=== PATIENT | female | born 1975 | race African-American/Black ===

== ENCOUNTER 2017-03-01 07:41 | Emergency (ER) | payer MEDICAID ==
[~2017-03-01] VITALS: Ht 165.1 cm; Wt 90.0 kg
[~2017-03-01 07:41] MED LIST: RISP1 PO; TRAZ50TA78 PO
[2017-03-01 07:42] VITALS: BP 127/77; PULSE 98; RESP 16; TEMP 98; O2SAT 99
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
[2017-03-01] MEDS ORDERED: IBUPROFEN 800 MG TAB PO ONE (08:00)
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
== END 2017-03-01 08:52 | disposition home or self-care (01) ==
LOC: NEPK 07:41
DX: S90.01XA Contusion of right ankle, initial encounter (principal); S90.31XA Contusion of right foot, initial encounter; Y04.0XXA Assault by unarmed brawl or fight, initial encounter
CPT/HCPCS: 73610; 73630; 99283; E0113

== ENCOUNTER 2017-05-27 08:45 | Emergency (ER) | payer MEDICAID ==
[~2017-05-27] VITALS: Ht 162.6 cm; Wt 63.5 kg
[2017-05-27 08:46] VITALS: BP 131/67; PULSE 104; RESP 20; TEMP 98.7; O2SAT 97
[2017-05-27] MEDS ORDERED: EMTR1TAB2 PO (09:17)
--- NOTE | 2017-05-27 10:20 | PD ---
HPI Chief Complaint: Cold / Flu Symptoms Time Seen by Provider: 09:50 Travel History International Travel<30 days: No Contact w/Intl Traveler<30days: No Traveled to known affect area: No History of Present Illness HPI The patient was seen and examined in the presence of the nurse. This patient complains of wheezing and coughing and congestion. She has asthma and smokes. She does have an albuterol inhaler at home. Denies fever. Severity is moderate. No alleviating factors. PFSH Past Medical History Autoimmune Disease: Yes (HIV) Anxiety: Yes Depression: Yes Diminished Hearing: No Immune Disorder: Yes (HIV) Psychiatric: Yes Immunizations Current: No ?: Not LMP: may 07 : 5 Para: 4 Miscarriage: 1 Past Surgical History Other Surgery: No Social History Alcohol Use: Yes (OCC) Tobacco Use: Yes (5-6 CIG PER DAY ) Substance Use: Yes (MARIJUANA) Allergies-Medications (Allergen,Severity, Reaction): Coded Allergies: No Known Allergies (Unverified , 06/19/16) Reported Meds & Prescriptions Reported Meds & Active Scripts Active Reported Odefsey (Sildleasnnvbi-Btvrmqaamgt-Kbhfciblk Alafenam) 200-200-25 Mg Tab 1 Tab PO DAILY Review of Systems General / Constitutional: No: Fever Respiratory: Positive: Cough, Wheezing Gastrointestinal: No: Abdominal Pain Musculoskeletal: No: Myalgias Physical Exam Narrative RESPIRATORY: Respiratory effort unlabored, no retractions or use of accessory muscles. Breath sounds reveal some expiratory wheeze and rhonchi without crackles CARDIOVASCULAR: Regular rate and rhythm without murmur. Extremities showed no edema or varicosities. Throat clear GASTROINTESTINAL: Abdomen soft, non-tender, nondistended. Positive bowel sounds. No hepato-splenomegaly, or palpable masses. No guarding. Data Data Last Documented VS Vital Signs Date Time Temp Pulse Resp B/P Pulse Ox O2 Delivery O2 Flow Rate FiO2 05/27/17 09:15 102 98 Room Air 05/27/17 08:46 98.7 20 131/67 Orders Albuterol-Ipratropium Neb (Duoneb Neb) (05/27/17 10:30) [facility] Medical Decision Making Medical Screen Exam Complete: Yes Emergency Medical Condition: Yes Medical Record Reviewed: Yes Differential Diagnosis Asthma, bronchitis, pneumonia Narrative Course I have reviewed the patient's electronic medical record. I gave her a nebulizer treatment She is having a mild asthma exacerbation Needs to quit smoking Gave her 5 days of prednisone She has an inhaler to use as needed Diagnosis Primary Impression: Asthma with acute exacerbation Qualified Code: J45.21 - Mild intermittent asthma with acute exacerbation Additional Instructions: The patient was advised to follow up with their physician and return if they worsen. Stop smoking Med/Other Pt SpecificInfo: Prescription(s) given Scripts Prednisone 20 Mg Tab40 Mg PO DAILY #10 TAB Ref 0 Take 40 mg (2 tablets) daily for 5 days Prov:Kevin Urbina MD 05/27/17 Disposition: DISCHARGE HOME Condition: Stable Kevin Urbina MD May 27, 2017 10:19
[2017-05-27] MEDS ORDERED: RESP: ALBUTEROL 2.5 MG/IPRATROPIUM 0.5 MG NEB (SCH) NEB ONE (10:30)
[2017-05-27] MEDS ORDERED: PRED20 PO (11:27)
== END 2017-05-27 11:59 | disposition home or self-care (01) ==
LOC: NEPD 08:45
DX: J45.21 Mild intermittent asthma with (acute) exacerbation (principal); Z72.0 Tobacco use; Z21 Asymptomatic human immunodeficiency virus [HIV] infection status; Z87.09 Personal history of other diseases of the respiratory system; Z86.59 Personal history of other mental and behavioral disorders
CPT/HCPCS: 94664; 99283

== ENCOUNTER 2017-10-23 13:39 | Emergency (ER) | payer MEDICAID, OTHER ==
[~2017-10-23] VITALS: Ht 165.1 cm; Wt 68.0 kg
[~2017-10-23 13:39] MED LIST changes: +EMTR1TAB2 PO; +PRED20 PO; -RISP1 PO; -TRAZ50TA78 PO
[2017-10-23 13:40] VITALS: BP 140/80; PULSE 85; RESP 18; TEMP 98.9; O2SAT 98
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
[2017-10-24] MEDS ORDERED: CYCL10TA PO (00:19)
[2017-10-24] MEDS ORDERED: DICL75TA PO (00:19)
== END 2017-10-23 17:17 | disposition left against medical advice (07) ==
LOC: NETRI 13:39
DX: M54.9 Dorsalgia, unspecified (principal); G89.29 Other chronic pain; B20 Human immunodeficiency virus [HIV] disease; F32.9 Major depressive disorder, single episode, unspecified; F41.9 Anxiety disorder, unspecified
CPT/HCPCS: 99281

== ENCOUNTER 2017-10-23 21:37 | Emergency (ER) | payer MEDICAID, OTHER ==
[~2017-10-23] VITALS: Ht 165.1 cm; Wt 70.0 kg
[2017-10-23 21:38] VITALS: BP 138/71; PULSE 78; RESP 16; TEMP 98.6; O2SAT 97
[2017-10-24] MEDS ORDERED: CYCL10TA PO (00:19)
[2017-10-24] MEDS ORDERED: DICL75TA PO (00:19)
[2017-10-24] MEDS ORDERED: CYCLOBENZAPRINE HCL 10 MG TAB PO ONE (00:30)
[2017-10-24] MEDS ORDERED: ACETAMINOPHEN/HYDROcodone 325 MG/5 MG TAB PO ONE (00:30)
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
== END 2017-10-24 01:05 | disposition home or self-care (01) ==
LOC: NEPD 21:37
DX: M54.5 Low back pain (principal); G89.29 Other chronic pain; B20 Human immunodeficiency virus [HIV] disease; F41.9 Anxiety disorder, unspecified; F32.9 Major depressive disorder, single episode, unspecified; F17.210 Nicotine dependence, cigarettes, uncomplicated; V89.2XXS Person injured in unspecified motor-vehicle accident, traffic, sequela
CPT/HCPCS: 99283

== ENCOUNTER 2017-12-12 06:37 | Emergency (ER) | payer MEDICAID, OTHER ==
[~2017-12-12] VITALS: Ht 165.1 cm; Wt 60.0 kg
[~2017-12-12 06:37] MED LIST changes: +CYCL10TA PO; +DICL75TA PO; -EMTR1TAB2 PO; -PRED20 PO
[2017-12-12 07:05] VITALS: BP 131/88; PULSE 91; RESP 16; TEMP 98.5; O2SAT 99
--- NOTE | 2017-12-12 07:31 | PD ---
HPI Chief Complaint: Bleeding Time Seen by Provider: 07:12 Travel History International Travel<30 days: No Contact w/Intl Traveler<30days: No Traveled to known affect area: No History of Present Illness HPI The patient was seen and examined in the presence of the nurse. This patient complains of rectal bleeding. Started 30 minutes prior to arrival. She has never had it before. Yesterday she had a normal bowel movement without any trouble. This morning she had some red rectal bleeding. No melena or black stool. She does not have any abdominal pain no nausea or vomiting or fever. She has history of HIV and is on antivirals with a undetectable viral load per her report. Symptom severity is mild. No alleviating factors. No exacerbating factors. She takes no blood thinners and has rare alcohol use. PFSH Past Medical History Autoimmune Disease: Yes (HIV) Anxiety: Yes Depression: Yes Diminished Hearing: No Immune Disorder: Yes (HIV) Psychiatric: Yes Immunizations Current: No : 5 Para: 4 Miscarriage: 1 Past Surgical History Other Surgery: No Social History Alcohol Use: Yes (OCC) Tobacco Use: Yes (5-6 CIG PER DAY ) Substance Use: Yes (MARIJUANA) Allergies-Medications (Allergen,Severity, Reaction): Coded Allergies: No Known Allergies (Unverified Adverse Reaction, Unknown, 12/12/17) Reported Meds & Prescriptions Reported Meds & Active Scripts Active Reported Odefsey (Drxihetgjdelf-Yhcctdolbla-Vrcglnjki Alafenam) 200-200-25 Mg Tab 1 Tab PO DAILY Review of Systems General / Constitutional: No: Fever Eyes: No: Visual changes HENT: No: Headaches Cardiovascular: No: Chest Pain or Discomfort Respiratory: No: Shortness of Breath Gastrointestinal: Positive: Hematochezia, No: Abdominal Pain Genitourinary: No: Dysuria Musculoskeletal: No: Pain Skin: No Rash Neurologic: No: Weakness Psychiatric: No: Depression Endocrine: No: Polydipsia Hematologic/Lymphatic: No: Easy Bruising Physical Exam Narrative GENERAL: Well-nourished, well-developed patient in no apparent distress. SKIN: Focused skin assessment reveals no rash and nodules. Skin is Warm and dry. HEAD: Atraumatic. Normocephalic. EYES: Pupils equal and round. No scleral icterus. No injection or drainage. ENT: No nasal bleeding or discharge. Mucous membranes pink and moist. NECK: Trachea midline. No JVD. CARDIOVASCULAR: Regular rate and rhythm. No murmur appreciated. RESPIRATORY: No accessory muscle use. Clear to auscultation. Breath sounds equal bilaterally. GASTROINTESTINAL: Abdomen soft, non-tender, nondistended. Hepatic and splenic margins not palpable. MUSCULOSKELETAL: No obvious deformities. No clubbing. No cyanosis. No edema. NEUROLOGICAL: Awake and alert. No obvious cranial nerve deficits. Motor grossly within normal limits. Normal speech. PSYCHIATRIC: Appropriate mood and affect; insight and judgment normal. Rectal: No fissure or external hemorrhoid Data Data Last Documented VS Vital Signs Date Time Temp Pulse Resp B/P (MAP) Pulse Ox O2 Delivery O2 Flow Rate FiO2 12/12/17 07:41 80 18 144/74 (97) 98 Room Air 12/12/17 07:05 98.5 Orders Orders Iv Access Insert/Monitor (12/12/17 07:24) Complete Blood Count With Diff (12/12/17 07:24) Prothrombin Time / Inr (Pt) (12/12/17 07:25) Act Partial Throm Time (Ptt) (12/12/17 07:25) Labs Laboratory Tests Test 12/12/17 07:40 White Blood Count 8.3 TH/MM3 Red Blood Count 4.53 MIL/MM3 Hemoglobin 14.6 GM/DL Hematocrit 41.8 % Mean Corpuscular Volume 92.3 FL Mean Corpuscular Hemoglobin 32.2 PG Mean Corpuscular Hemoglobin Concent 34.9 % Red Cell Distribution Width 14.6 % Platelet Count 218 TH/MM3 Mean Platelet Volume 9.6 FL Neutrophils (%) (Auto) 66.3 % Lymphocytes (%) (Auto) 25.5 % Monocytes (%) (Auto) 5.8 % Eosinophils (%) (Auto) 1.5 % Basophils (%) (Auto) 0.9 % Neutrophils # (Auto) 5.5 TH/MM3 Lymphocytes # (Auto) 2.1 TH/MM3 Monocytes # (Auto) 0.5 TH/MM3 Eosinophils # (Auto) 0.1 TH/MM3 Basophils # (Auto) 0.1 TH/MM3 CBC Comment DIFF FINAL Differential Comment Prothrombin Time 11.9 SEC Prothromb Time International Ratio 1.2 RATIO Activated Partial Thromboplast Time 25.1 SEC MDM Medical Decision Making Medical Screen Exam Complete: Yes Emergency Medical Condition: Yes Medical Record Reviewed: Yes Differential Diagnosis Internal hemorrhoid, AV malformation, diverticulosis Narrative Course I have reviewed the patient's electronic medical record. Reviewed prior labs. Last lab studies from 2016 with normal hemoglobin Patient has normal vital signs and a normal exam IV was placed and lab studies sent CBC is normal Coagulation studies are normal Recommending outpatient GI follow-up to discuss colonoscopy. If she has worsening she should return. But at this point very stable Advised to avoid alcohol and aspirin and anti-inflammatories Diagnosis Primary Impression: Rectal bleeding Additional Instructions: Follow-up with GI to discuss colonoscopy Return if bleeding has significant worsening Avoid aspirin and anti-inflammatories and alcohol Med/Other Pt SpecificInfo: Other Disposition: DISCHARGE HOME Condition: Stable Kevin Urbina MD Dec 12, 2017 07:31
[2017-12-12 07:41] VITALS: BP 144/74; PULSE 80; RESP 18; O2SAT 98
[2017-12-12] MEDS ORDERED: EMTR1TAB2 PO (07:48)
[2017-12-12 08:07] LABS: AUTOMATED NEUTROPHIL # 5.5 TH/MM3 (1.8-7.7); BASOPHIL # 0.1 TH/MM3 (0-0.2); BASOPHIL % 0.9 % (0.0-2.0); EOSINOPHIL # 0.1 TH/MM3 (0-0.4); EOSINOPHIL % 1.5 % (0.0-4.0); HEMATOCRIT 41.8 % (35.0-46.0); HEMOGLOBIN 14.6 GM/DL (11.6-15.3); LYMPH % 25.5 % (9.0-44.0); LYMPHOCYTE # 2.1 TH/MM3 (1.0-4.8); MEAN CELL VOLUME 92.3 FL (80.0-100.0); MEAN CORPUSCULAR HEMOGLOBIN 32.2 PG (27.0-34.0); MEAN CORPUSCULAR HGB CONC 34.9 % (32.0-36.0); MEAN PLATELET VOLUME 9.6 FL (7.0-11.0); MONO % 5.8 % (0.0-8.0); MONOCYTE # 0.5 TH/MM3 (0-0.9); NEUT % 66.3 % (16.0-70.0); PLATELET COUNT 218 TH/MM3 (150-450); RED BLOOD COUNT 4.53 MIL/MM3 (4.00-5.30); RED CELL DISTRIBUTION WIDTH 14.6 % (11.6-17.2); WHITE BLOOD COUNT 8.3 TH/MM3 (4.0-11.0)
[2017-12-12 08:17] LABS: INTERNATIONAL NORMALIZED RATIO 1.2 RATIO; PROTHROMBIN TIME - PATIENT 11.9 SEC (9.8-11.6)
== END 2017-12-12 09:23 | disposition home or self-care (01) ==
LOC: NEPC 06:37
DX: K62.5 Hemorrhage of anus and rectum (principal); F12.90 Cannabis use, unspecified, uncomplicated; F17.210 Nicotine dependence, cigarettes, uncomplicated; Z21 Asymptomatic human immunodeficiency virus [HIV] infection status
CPT/HCPCS: 85025; 85610; 85730; 99284